=== PATIENT | male | born 2000 | race African-American/Black ===

== ENCOUNTER 2022-02-21 20:39 | Emergency (ER) | payer SELFPAY ==
[2022-02-21] MEDS ORDERED: Ketorolac Tromethamine 30 MG/ML VIAL ONE (21:01)
[2022-02-21] MEDS ORDERED: Acetaminophen 500 MG TAB ONE (21:02)
== END 2022-02-21 21:28 | disposition home or self-care (01) ==
LOC: ERS 20:39
DX: R51.9 Headache, unspecified (principal)
CPT/HCPCS: 96372; 99283; J1885